=== PATIENT | male | born 1960 | race Two or more races ===

== ENCOUNTER 2016-12-01 17:40 | Emergency (ER) | payer OTHER ==
[~2016-12-01] VITALS: Ht 167.6 cm; Wt 74.8 kg
--- NOTE | 2016-12-01 18:06 | Emergency Room Report ---
History of Present Illness General Chief Complaint: Back Pain-No Injury Source: Patient Present Illness HPI The patient is a 56-year-old male presenting for lower back pain. The patient states he was lifting a heavy object at work and felt a sharp pain to the left lower back. Pain is now described as an 8/10 constant sharp sensation and does not radiate. Pain worse with bending over and twisting. He denies prior injury of the back. He denies any numbness or tingling. He denies other symptoms including F, Chills, N, V, abd pain Allergies: Coded Allergies: No Known Allergies (Unverified , 12/01/16) Patient History Past Medical History: see triage record Pertinent Family History: none Reviewed Nursing Documentation: PMH: Agreed, PSxH: Agreed Nursing Documentation-PMH Past Medical History: No History, Except For Hx Hypertension: Yes Review of Systems All Other Systems: negative except mentioned in HPI Physical Exam Vital Signs Date Time Temp Pulse Resp B/P Pulse Ox O2 Delivery O2 Flow Rate FiO2 12/01/16 17:49 97.9 68 19 150/87 98 Room Air Sp02 EP Interpretation: reviewed, normal General Appearance: no apparent distress, alert, GCS 15, non-toxic Head: normocephalic, atraumatic Eyes: bilateral eye PERRL, bilateral eye normal inspection ENT: hearing grossly normal, normal pharynx, no angioedema, normal voice Respiratory: chest non-tender, lungs clear, normal breath sounds, speaking full sentences Musculoskeletal: normal inspection, gait/station normal, normal range of motion , tender - Left lower paraspinous muscles Neurologic: alert, oriented x3, responsive, motor strength/tone normal, sensory intact, speech normal Psychiatric: judgement/insight normal, memory normal, mood/affect normal, no suicidal/homicidal ideation Skin: normal color, no rash, warm/dry, well hydrated Lymphatic: no adenopathy Medical Decision Making PA Attestation Dr. Fung is my supervising physician. Patient management was discussed with my supervising physician Diagnostic Impression: Primary Impression: Lumbar strain Qualified Codes: S39.012A - Strain of muscle, fascia and tendon of lower back , initial encounter ER Course The patient is a 56-year-old male presenting for lower back pain. Ddx considered include but not limited to sprain/strain, fracture, contusion PE: vitals WNL. NAD Back: There is tenderness to palpation over the left paraspinous muscles only. No midline tenderness. Normal gait. The patient is given Toradol and Robaxin and is feeling much better. He'll be discharged with a prescription for Motrin and Robaxin. ER precautions given. He will follow up with workers compensation Last Vital Signs Date Time Temp Pulse Resp B/P Pulse Ox O2 Delivery O2 Flow Rate FiO2 12/01/16 17:49 97.9 68 19 150/87 98 Room Air Status: improved Disposition: HOME, SELF-CARE Condition: Improved Scripts Methocarbamol* (ROBAXIN-750*) 750 Mg Tablet 750 MG PO TID, #21 TAB 0 Refills Prov: DARIUS WILCOX P.AReinaldo 12/01/16 Ibuprofen* (MOTRIN*) 600 Mg Tablet 600 MG ORAL Q8H Y for For Pain, #30 TAB 0 Refills Prov: DARIUS WILCOX P.A. 12/01/16 DARIUS WILCOX December 01, 2016 18:06
[2016-12-01] MEDS ORDERED: Methocarbamol 750mg tab ORAL ONE (18:15)
[2016-12-01] MEDS ORDERED: Ketorolac 30mg Inj IM ONE (18:15)
[2016-12-01] MEDS ORDERED: ROBAXIN-750750 MG PO (18:38)
[2016-12-01] MEDS ORDERED: IBUPROFEN600 MG ORAL (18:38)
[2016-12-01 18:53] VITALS: BP 135/85
[2016-12-01 19:01] VITALS: BP 135/85
== END 2016-12-01 19:01 | disposition home or self-care (01) ==
LOC: EMR 18:27
DX: S39.012A Strain of muscle, fascia and tendon of lower back, initial encounter (principal); X50.0XXA Overexertion from strenuous movement or load, initial encounter; Y93.9 Activity, unspecified; Y99.9 Unspecified external cause status; M54.5 Low back pain; I10 Essential (primary) hypertension
CPT/HCPCS: 96372; 99284; J1885

== ENCOUNTER 2018-08-16 22:22 | Emergency (ER) | payer OTHER ==
[~2018-08-16] VITALS: Ht 165.1 cm; Wt 74.8 kg
[~2018-08-16 22:22] MED LIST: IBUPROFEN600 MG ORAL; ROBAXIN-750750 MG PO
--- NOTE | 2018-08-16 22:25 | NUR ---
ED Nurse Note: PT walked into ER stating that he thinks shattered glass pieces in R eye while elevator's glass broke on top. Pt is AO x 4times, VSS, on room air no distress. CHRISTIE seen Pt at bedside.
[2018-08-16] MEDS ORDERED: AMLODIPINE BES2.5 MG ORAL (22:30)
--- NOTE | 2018-08-16 22:45 | NUR ---
ED Nurse Note: Pt eyes exam chart, Pt able to read 20/20.
[2018-08-16 22:56] VITALS: BP 150/79
[2018-08-16] MEDS ORDERED: Fluorescein Strips LEFT EYE ONE (23:00)
[2018-08-16] MEDS ORDERED: Tetracaine 0.5% Opth 4ml Soln LEFT EYE ONE (23:00)
[2018-08-16] MEDS ORDERED: GENTAK5 ML RIGHT EYE (23:50)
[2018-08-17] VITALS: BP 154/82
--- NOTE | 2018-08-17 | NUR ---
ED Nurse Note: Pt cleared DC by ERMUnruly. Pt is AO x 4times, VSS, on room air no distress. Belongings given to Pt. DC and meds instructions given to Pt, Pt understood well. ID bend removed. Pt walkled out unit with steady gait.
--- NOTE | 2018-09-19 21:36 | Emergency Room Report ---
History of Present Illness General Chief Complaint: Eye Problems Source: Patient Present Illness HPI Patient is a 58-year-old male but who presented after increased right eye discomfort. Patient had reportedly had increased discomfort after work. He reportedly had been possibly had some foreign material splashed in his eye. Patient reports having some continued eye discomfort. Patient denies any fever. He denies any sore throat. He denies any visual changes. Allergies: Coded Allergies: No Known Allergies (Unverified , 12/01/16) Patient History Past Medical History: see triage record Reviewed Nursing Documentation: PMH: Agreed; PSxH: Agreed Nursing Documentation-PMH Hx Hypertension: Yes Review of Systems All Other Systems: negative except mentioned in HPI Physical Exam General Appearance: well appearing, no apparent distress, GCS 15 Head: normocephalic, atraumatic Eyes: bilateral eye PERRL, bilateral eye other - no fluorescein dye uptake ENT: hearing grossly normal, normal voice Neck: full range of motion, supple Respiratory: no respiratory distress, speaking full sentences Neurologic: normal gait Psychiatric: mood/affect normal Skin: no rash Medical Decision Making Diagnostic Impression: Primary Impression: Sensation of foreign body in eye ER Course . Patient presented for eye discomfort. Differential diagnosis include was not limited to foreign body, chemical exposure, allergic conjunctivitis among others. Patient has a benign exam and does not appear to require any further imaging or laboratory testing at this time. Patient was noted to have no definite foreign body seen on fluorescein staining.Patient was advised to follow -up with his eye physician for recheck. Status: improved Disposition: HOME, SELF-CARE Condition: Stable Scripts Gentamicin Sulfate* (GENTAK*) 5 Ml Drops 1 DROP RIGHT EYE Q4H, #5 DROP 0 Refills Prov: Arpan Chen MD 08/16/18 Referrals: NOT CHOSEN IPA/,REFERRING (PCP) Patient Instructions: Chemical Conjunctivitis Arpan Chen MD Sep 19, 2018 21:36
== END 2018-08-17 02:33 | disposition home or self-care (01) ==
LOC: EMR 22:49
DX: H57.9 Unspecified disorder of eye and adnexa (principal); I10 Essential (primary) hypertension
CPT/HCPCS: 99283